=== PATIENT | male | born 1985 | race American Indian/Alaskan Native ===

== ENCOUNTER 2020-09-05 20:43 | Emergency (ER) | payer SELFPAY ==
[2020-09-05] MEDS ORDERED: dexAMETHasone 20 MG/5 ML VIAL IM ONE (21:35)
[2020-09-05] MEDS ORDERED: HYDROcodone/ACETAMINOPHEN 5-325 MG TAB PO ONE (21:35)
--- NOTE | 2020-09-05 21:41 | Emergency Department Report ---
ED Extremity Problem HPI - General Chief complaint: Extremity Injury, Lower Stated complaint: RT TOE PAIN Time Seen by Provider: 09/05/20 21:35 Source: patient Mode of arrival: Ambulatory Limitations: No Limitations - History of Present Illness Initial comments: pt is a 35 yo male who presents to the ED with c/o right great toe pain and swelling that began three days ago. he denies any fall or injury. he denies every having this in the past. he states that gout runs in his family. he denies any fever, n/v/d, rashes. no pmhx. no allergies to meds. he states that he ate a steak the day before his symptoms started. he denies any beer or wine use. - Related Data Home Medications Medication Instructions Recorded Confirmed Last Taken Ibuprofen [Ibu-200] 200 mg PO 09/05/20 09/05/20 Previous Rx's Medication Instructions Recorded Last Taken Type Colchicine 1.2 mg PO ONCE 1 Days #3 capsule 09/05/20 Unknown Rx Naproxen [EC-Naprosyn] 500 mg PO BID PRN #14 tablet. 09/05/20 Unknown Rx Prednisone [predniSONE 10 mg 10 mg PO .TAPER #1 tab.ds.pk 09/05/20 Unknown Rx (6-Day Pack, 21 Tabs)] traMADoL [Ultram 50 MG tab] 50 mg PO Q6HR PRN #12 tablet 09/05/20 Unknown Rx Allergies Allergy/AdvReac Type Severity Reaction Status Date / Time No Known Allergies Allergy Unverified 09/05/20 21:34 ED Review of Systems ROS: Stated complaint: RT TOE PAIN Other details as noted in HPI Comment: All other systems reviewed and negative ED Past Medical Hx - Past Medical History Previous Medical History?: No - Surgical History Past Surgical History?: No - Social History Smoking Status: Never Smoker - Medications Home Medications: Home Medications Medication Instructions Recorded Confirmed Last Taken Type Colchicine 1.2 mg PO ONCE 1 Days #3 capsule 09/05/20 Unknown Rx Ibuprofen [Ibu-200] 200 mg PO 09/05/20 09/05/20 History Naproxen [EC-Naprosyn] 500 mg PO BID PRN #14 tablet. 09/05/20 Unknown Rx Prednisone [predniSONE 10 mg 10 mg PO .TAPER #1 tab.ds.pk 09/05/20 Unknown Rx (6-Day Pack, 21 Tabs)] traMADoL [Ultram 50 MG tab] 50 mg PO Q6HR PRN #12 tablet 09/05/20 Unknown Rx ED Physical Exam - General Limitations: No Limitations General appearance: alert, in no apparent distress - Head Head exam: Present: atraumatic, normocephalic - Eye Eye exam: Present: normal appearance - ENT ENT exam: Present: mucous membranes moist - Respiratory Respiratory exam: Absent: respiratory distress, accessory muscle use - Extremities Exam Extremities exam: Present: other (edema and ttp to the right great toe, mild erythema and increased warmth, FROM of the toes and foot, pain with flexion of the right great toe, neurovascularly intact) - Neurological Exam Neurological exam: Present: alert, oriented X3 - Psychiatric Psychiatric exam: Present: normal affect, normal mood - Skin Skin exam: Present: warm, dry, intact ED Course Vital Signs 09/05/20 09/05/20 09/05/20 21:32 21:42 21:55 Temperature 99.6 F 99.1 F Pulse Rate 104 H 102 H Respiratory 18 18 18 Rate Blood Pressure 151/86 Blood Pressure 114/64 [Left] O2 Sat by Pulse 99 99 Oximetry ED Medical Decision Making - Lab Data Vital Signs 09/05/20 09/05/20 09/05/20 21:32 21:42 21:55 Temperature 99.6 F 99.1 F Pulse Rate 104 H 102 H Respiratory 18 18 18 Rate Blood Pressure 151/86 Blood Pressure 114/64 [Left] O2 Sat by Pulse 99 99 Oximetry - Medical Decision Making pt is a 35 yo male who presents to the ED with c/o right great toe pain and swelling that began three days ago. he denies any fall or injury. he denies every having this in the past. he states that gout runs in his family. he denies any fever, n/v/d, rashes. no pmhx. no allergies to meds. he states that he ate a steak the day before his symptoms started. he denies any beer or wine use. Vitals with mild tachycardia, otherwise normal, patient is afebrile, likely secondary to pain. On exam:edema and ttp to the right great toe, mild erythema and increased warmth, FROM of the toes and foot, pain with flexion of the right great toe, neurovascularly intact. Exam appears most consistent with acute gout flare/podagra. No clinical signs of septic joint at this time. Patient given IM dexamethasone and hydrocodone while in the emergency department as he did not drive and symptoms improved. Patient given prescription for tramadol, prednisone, naproxen, colchicine. Advised patient please take medication as prescribed. do not drive or operate heavy machinery while taking pain medication. follow up with a primary care doctor. follow the diet for gout. return to the emergency room for any new or worsening symptoms. Critical care attestation.: If time is entered above; I have spent that time in minutes in the direct care of this critically ill patient, excluding procedure time. ED Disposition Clinical Impression: Podagra Disposition: DC-01 TO HOME OR SELFCARE Is pt being admited?: No Does the pt Need Aspirin: No Condition: Stable Instructions: Low-Purine Eating Plan Additional Instructions: please take medication as prescribed. do not drive or operate heavy machinery while taking pain medication. follow up with a primary care doctor. follow the diet for gout. return to the emergency room for any new or worsening symptoms. Prescriptions: Colchicine 1.2 mg PO ONCE 1 Days #3 capsule Naproxen [EC-Naprosyn] 500 mg PO BID PRN #14 tablet.dr PRN Reason: moderate pain Prednisone [predniSONE 10 mg (6-Day Pack, 21 Tabs)] 10 mg PO .TAPER #1 tab.ds.pk traMADoL [Ultram 50 MG tab] 50 mg PO Q6HR PRN #12 tablet PRN Reason: Pain , Severe (7-10) Referrals: [facility] [Provider Group] - 2-3 Days TOMAS ARCHER MD [Staff Physician] - 2-3 Days Time of Disposition: 21:39 Print Language: BENGALI
[2020-09-05 21:57] VITALS: BP 114/64
== END 2020-09-05 21:55 | disposition home or self-care (01) ==
LOC: ED 20:43
DX: M10.9 Gout, unspecified (principal); Z79.899 Other long term (current) drug therapy
CPT/HCPCS: 96372; 99282; J1100